=== PATIENT | male | born 1995 | race Caucasian/White ===

== ENCOUNTER 2020-11-12 08:08 | Emergency (ER) | payer OTHER, SELFPAY ==
--- NOTE | 2020-11-12 08:19 | ED.GENADULT ---
HPI - General Adult General Chief complaint: Extremity Injury, Upper Stated complaint: right arm injury last night Time Seen by Provider: 11/12/20 08:19 History of Present Illness HPI narrative: Otherwise healthy 25-year-old young man slipped in the shower and hit his right elbow and hand against the side of the wall suffering some minor contusions and scratches. He is complaining of minimal pain however when he went to work this morning they requested that he have a medical evaluation. He has full range of motion nontender at the elbow, shoulder, wrist and in the hand. He has no swelling to any portion of the upper extremity. Related Data Allergies Allergy/AdvReac Type Severity Reaction Status Date / Time No Known Drug Allergies Allergy Verified 11/12/20 08:24 Review of Systems Review of Systems Narrative: Pertinent positive and negative findings as per HPI Remainder of review of systems is otherwise unremarkable for Constitutional: Fevers, chills, weakness ENT: No sore throat, neck pain, ear pain CV: Chest pain, palpitations, Respiratory: Cough, wheeze, dyspnea GI: Nausea, vomiting, diarrhea, : Dysuria, hematuria, flank pain MS: Muscle weakness, numbness, joint swelling or warmth Skin: Rashes, Patient History Social History Smoking Status: Never smoker Exam Initial Vital Signs Initial Vital Signs: Vital Signs Temperature 98.5 F 11/12/20 08:24 Pulse Rate 79 11/12/20 08:24 Respiratory Rate 16 11/12/20 08:24 Blood Pressure 139/81 11/12/20 08:24 Pulse Oximetry 99 11/12/20 08:24 Course Vital Signs Vital signs: Vital Signs - 8 hr 11/12/20 08:24 Temperature 98.5 F Pulse Rate 79 Respiratory Rate 16 Blood Pressure 139/81 Pulse Oximetry 99 Medical Decision Making [facility] Narrative Medical decision making narrative: Healthy 25-year-old gentleman with minor scratches over his elbow and hand with full nonpainful range of motion. Imaging studies are not indicated at this time. He is reassured. Safe to return to work. Discharged safely to home. Discharge Plan Departure Patient Disposition: Home Clinical Impression: Contusion of elbow, right Qualifiers: Encounter type: initial encounter Qualified Code(s): S50.01XA - Contusion of right elbow, initial encounter Contusion of hand Qualifiers: Encounter type: initial encounter Laterality: right Qualified Code(s): S60.221A - Contusion of right hand, initial encounter Instructions: DI for Contusion Activity Restrictions/Additional Instructions: Thank you for coming in today After exam need, I can reassure you that there is no evidence of any broken bones. I expect both the scratches and contusions to the hand and the elbow will heal nicely If you have new or changing symptoms, please feel free to return for further evaluation
[2020-11-12 08:24] VITALS: BP 139/81; PULSE 79; RESP 16; TEMP 36.9; O2SAT 99; BMI 22.2
== END 2020-11-12 08:37 | disposition home or self-care (01) ==
PROVIDERS: Emergency Provider Emergency Medicine
DX: S50.01XA Contusion of right elbow, initial encounter (principal); S60.221A Contusion of right hand, initial encounter; W18.2XXA Fall in (into) shower or empty bathtub, initial encounter
CPT/HCPCS: 99281